=== PATIENT | male | born 1975 | race African-American/Black ===

== ENCOUNTER 2016-12-12 07:54 | Observation (INO) | payer OTHER ==
--- NOTE | ~2016-12-12 | OR ---
Unit #: [id number] #: [id number] Patient: VADIM GARCIA [id number] [address] [address] [id number] Deisy MR#: [id number] NAME: VADIM GARCIA ROOM: [facility] Date of Procedure: 12/12/2016 Admission Date: 12/12/2016 Surgeon: Del Mehta M.D. : 1975 Attending Physician: Daryl Resendiz III, M.D. Primary Care Physician: Damir Streeter M.D. OPERATIVE REPORT PREOPERATIVE DIAGNOSIS Appendicitis. POSTOPERATIVE DIAGNOSIS Appendicitis. PROCEDURE PERFORMED Laparoscopic appendectomy. 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 ANESTHESIA General endotracheal anesthesia. ESTIMATED BLOOD LOSS Minimal. IV FLUIDS 500 crystalloid. COMPLICATIONS None. INDICATIONS FOR PROCEDURE The patient is a 41-year-old gentleman, who presents with appendicitis. DESCRIPTION OF PROCEDURE The patient was taken to the operating theater and placed in supine position. General anesthesia was induced. The abdomen was prepped and draped. An infraumbilical incision was then made. A Veress needle was placed intra-abdominally. The abdomen was insufflated to 15 mmHg with CO2. Under direct vision, I placed a 5-mm port at the umbilicus. The patient was placed in Trendelenburg. I placed a right lower quadrant 12 mm, left lower quadrant 12 mm port. General inspection of the abdomen revealed acute appendicitis nonperforated. I mobilized the right colon using Bovie electrocautery. I fired a TAMIKO stapler across the mesoappendix and a second load across the appendix proper. We amputated the appendix. This was then placed in an Endobag and removed. Hemostasis was adequate. I saw no other abnormalities. The ports were removed and the fascia closed with 0 Vicryl and skin with 4-0 Vicryl. The patient tolerated the procedure well and sent to recovery room in good condition. Unit #: [id number] #: [id number] Patient: VADIM GARCIA Dictated by... Rajeev GravesO/catarina TD: 12/13/2016 03:36 JOB #: [id number] OPERATIVE REPORT Page 1 of 1 X Del Mehta MD PROCEDURE OPERATIVE NOTE
--- NOTE | ~2016-12-12 | CO ---
Unit #: [id number] #: [id number] Patient: VADIM GARCIA [id number] [address] [place], [place] [address] [id number] MR#: [id number] NAME: VADIM GARCIA ROOM: [facility] Age: 41 Sex: M Admission Date: 12/12/2016 : 1975 Attending Physician: Daryl Resendiz III, M.D. Primary Care Physician: Damir Streeter M.D. CONSULTATION REPORT BRIEF HISTORY The patient is a 41-year-old gentleman, who presented with a less than 24-hour history of periumbilical and now right lower quadrant abdominal pain. No fevers or chills. No history of similar type pain. No trauma. PAST MEDICAL HISTORY None. MEDICATIONS He is on no chronic medications. PAST SURGICAL HISTORY No previous surgeries. REVIEW OF SYSTEMS No cardiopulmonary complaints at this time. Else, 10 systems reviewed and negative. PHYSICAL EXAMINATION GENERAL: He is awake, alert, and appropriate. VITAL SIGNS: Currently, afebrile. HEENT: Unremarkable. NECK: Supple. No JVD. Trachea midline. LUNGS: Clear to auscultation. Bilateral breath sounds symmetric. CARDIOVASCULAR: Regular rate and rhythm. ABDOMEN: Soft. It is tender in the right lower quadrant with point tenderness at McBurney point. There is no rebound. No masses. No hernias. EXTREMITIES: No clubbing, cyanosis, or edema. DIAGNOSTIC STUDIES LABORATORY RESULTS: Show a normal white count. IMAGING STUDIES: CT scan shows inflammation of the appendix with dilatation. ASSESSMENT Appendicitis. PLAN Recommend laparoscopic appendectomy. Discussed risks and benefits in detail with the patient and family. All questions answered. We will proceed as indicated. Unit #: [id number] #: [id number] Patient: VADIM GARCIA Dictated by... Rajeev Graves/catarina TD: 12/12/2016 19:50 JOB #: [id number] CONSULTATION REPORT Page 1 of 1 X Del Mehta MD X CONSULTATION REPORT
[2016-12-12] MEDS ORDERED: HYDROCODON-ACE1 EAC9 PO (12:47)
== END 2016-12-12 15:28 | disposition home or self-care (01) ==
LOC: CEDOF 07:54 → C4C 08:00
DX: K35.80 Unspecified acute appendicitis (principal); I10 Essential (primary) hypertension
CPT/HCPCS: 88304; 96374; 96375; G0378; J0330; J2250; J2270; J2550; J2710; J3010